=== PATIENT | male | born 1950 | race Caucasian/White ===

== ENCOUNTER 2017-06-28 20:14 | Emergency (ER) | payer MEDICARE, MEDICAID ==
--- NOTE | 2017-06-28 21:56 | C.PDOC ---
History Of Present Illness patient was just discharged from [facility] [place] for drainage of a liver abscess. Pt states that he had some pain . NO f/c/n/v. Speaking in complete sentences. Had not filled his prescriptions from his doctor. Time Seen by Provider: 06/28/17 21:56 Chief Complaint (Nursing): Fever History/Exam Limitations: no limitations Onset/Duration Of Symptoms: Hrs Current Symptoms Are (Timing): Better Context: Other Severity: Mild Pain Scale Rating Of: 2 Location Of Pain/Discomfort: RUQ Radiation Of Pain To:: None Quality Of Discomfort: Dull Associated Symptoms: denies: Fever, Chills, Nausea, Vomiting Exacerbating Factors: Movement Alleviating Factors: None Last Bowel Movement: Today Past Medical History Reviewed: Historical Data, Nursing Documentation, Vital Signs Vital Signs: Last Vital Signs Temp 98.0 F 06/29/17 01:06 Pulse 86 06/29/17 00:40 Resp 20 06/29/17 00:40 BP 130/81 06/29/17 00:40 Pulse Ox 100 06/29/17 00:43 - Medical History PMH: Denies: Chronic Kidney Disease Family History: States: No Known Family Hx - Social History Hx Alcohol Use: No Hx Substance Use: No - Immunization History Hx Tetanus Toxoid Vaccination: No Hx Influenza Vaccination: No Hx Pneumococcal Vaccination: No Review Of Systems Constitutional: Negative for: Fever, Chills Eyes: Negative for: Redness ENT: Negative for: Throat Pain Cardiovascular: Negative for: Chest Pain Respiratory: Negative for: Shortness of Breath Gastrointestinal: Positive for: Abdominal Pain (mild ). Negative for: Nausea, Vomiting Genitourinary: Negative for: Dysuria Musculoskeletal: Negative for: Back Pain Skin: Negative for: Rash Neurological: Negative for: Weakness Psych: Negative for: Anxiety Physical Exam - Physical Exam Appears: Non-toxic, No Acute Distress Skin: Warm, Dry Head: Normacephalic Eye(s): bilateral: Normal Inspection Oral Mucosa: Moist Neck: Supple Chest: Symmetrical Cardiovascular: Rhythm Regular Respiratory: No Rales, No Rhonchi, No Wheezing Gastrointestinal/Abdominal: Soft, Tenderness (mild at drain site ruq), No Distention, No Guarding, No Rebound Back: No CVA Tenderness Extremity: Normal ROM Extremity: Bilateral: Atraumatic Neurological/Psych: Oriented x3, Normal Speech, Normal Cognition Gait: Steady ED Course And Treatment - Laboratory Results Result Diagrams: 06/28/17 22:20 06/28/17 22:20 ECG: Interpreted By Me O2 Sat by Pulse Oximetry: 100 Pulse Ox Interpretation: Normal - Radiology CXR: Interpreted by Me, Viewed By Me CXR Interpretation: Yes: Other (? rll inifiltrate, suprahepatic drain present). No: Fracture, Pnemothorax Reevaluation Time: 01:12 Reassessment Condition: Improved Medical Decision Making Medical Decision Making: Upon provider reevaluation patient is feeling better, is medically stable, and requires no further treatment in the ED at this time. Patient will be discharged home . Counseling was provided and all questions were answered regarding diagnosis and need for follow up with dr maguire. There is agreement to discharge plan. Return if symptoms persist or worsen. Disposition Counseled Patient/Family Regarding: Studies Performed, Diagnosis, Need For Followup - Disposition Referrals: Jer Rizvi MD [Staff Provider] - Disposition: HOME/ ROUTINE Disposition Time: 21:56 Condition: FAIR Instructions: Abdominal Pain (ED) Forms: [facility] [employer] ([employer]) - Clinical Impression Clinical Impression: Visit for wound check
[2017-06-28] MEDS ORDERED: Sodium Chloride 0.9% 1,000 ML IV ONE (22:07)
[2017-06-28 22:24] LABS: BASO % 0.5 % (0.0-2.0); EOS % 0.3 % (0.0-4.0); HEMATOCRIT 37.6 % (35.0-51.0); LYMPH # 0.7 K/uL (1.0-4.3); LYMPH % 10.3 % (20.0-40.0); MEAN CELL VOLUME 87.5 fL (80.0-94.0); MEAN CORPUSCULAR HEMOGLOBIN 29.5 pg (27.0-31.0); MEAN CORPUSCULAR HGB CONC 33.7 g/dL (33.0-37.0); MEAN PLATELET VOLUME 9.1 fL (7.2-11.7); MONO # 0.4 K/uL (0.0-0.8); MONO % 5.7 % (0.0-10.0); RED CELL DISTRIBUTION WIDTH 15.4 % (11.5-14.5); WHITE BLOOD COUNT 7.1 K/uL (4.8-10.8)
[2017-06-28 22:35] LABS: CHLORIDE 98 mmol/L (98-107)
[2017-06-28 22:36] LABS: SODIUM 135 mmol/L (132-148)
[2017-06-28 22:36] LABS: VENOUS BLOOD GAS PCO2 36 mmHg (40-60); VENOUS BLOOD PH 7.46 (7.32-7.43)
[2017-06-28 22:37] LABS: INR 1.3; POTASSIUM 4.2 mmol/L (3.6-5.2)
[2017-06-28 22:38] LABS: ALB/GLOB RATIO 0.9 (1.0-2.1); ALKALINE PHOSPHATASE 251 U/L (38-126); ALT/SGPT 75 U/L (21-72); AST/SGOT 78 U/L (17-59); BILIRUBIN,TOTAL 1.5 mg/dL (0.2-1.3); BLOOD UREA NITROGEN 11 mg/dL (9-20); CALCIUM 8.9 mg/dl (8.6-10.4); CARBON DIOXIDE 22 mmol/L (22-30); GFR AFRICAN-AMERICAN > 60; GLUCOSE,RANDOM 134 mg/dL (75-110); TOTAL PROTEIN 8.1 g/dL (6.3-8.3)
[2017-06-29 00:40] VITALS: PULSE 86; RESP 20
[2017-06-29 01:06] VITALS: TEMP 98
[2017-06-29 01:19] VITALS: BP 124/80; O2SAT 97
--- NOTE | 2017-06-29 08:54 | RAD ---
PROCEDURE: CHEST RADIOGRAPH, 1 VIEW HISTORY: Abdominal pain COMPARISON: None available. FINDINGS: LUNGS: There are low lung volumes. There is mild pulmonary venous congestion. PLEURA: There is a small right pleural effusion. No pneumothorax. CARDIOVASCULAR: Normal. OSSEOUS STRUCTURES: No significant abnormalities. VISUALIZED UPPER ABDOMEN: Normal. OTHER FINDINGS: A tube overlies the right upper quadrant. . IMPRESSION: Small right pleural effusion. Mild pulmonary venous congestion.
== END 2017-06-29 01:32 | disposition home or self-care (01) ==
LOC: C.ER 20:14
DX: Z48.89 Encounter for other specified surgical aftercare (principal)
CPT/HCPCS: 71010; 80053; 82803; 83690; 85025; 85610; 85730; 87040; 99285; J7040